=== PATIENT | female | born 1970 | race Two or more races ===

== ENCOUNTER 2019-04-25 18:58 | Inpatient (IN) | payer SELFPAY ==
[~2019-04-25] VITALS: Ht 149.9 cm; Wt 65.5 kg
--- NOTE | 2019-04-25 20:31 | NUR ---
PT BIB SELF FOR C/O LLQ ABD PAIN X2 DAYS. +N/V/D. PT DENIES ANY CHANGE IN DIET OR FOOD ALLERGIES. PT DENIES ANY PAIN WHILE URINATING OR HAVING A BM. PT IS A/O X4. PT RESPS ARE E/U. PT CAN AMBULATE WITH STEADY GAIT. AWAITING MSE
--- NOTE | 2019-04-25 21:03 | NUR ---
DR CRANE AT BEDSIDE
[2019-04-25 21:23] LABS: UA SPECIFIC GRAVITY 1.025 (1.005-1.035); microscopic required? YES; urine erythrocyte 3+ (NEGATIVE)
[2019-04-25 21:25] LABS: PLATELET COUNT 323 x10^3mcL (130-400)
[2019-04-25 21:28] LABS: RED CELL DISTRIBUTION WIDTH 19.9 % (11.5-14.5)
[2019-04-25 21:41] LABS: rbc morphology (normal/abnorm) ABNORMAL (NORMAL)
[2019-04-25 21:42] LABS: ovalocyte/elliptocyte 1+
--- NOTE | 2019-04-25 21:45 | NUR ---
PT TAKEN FOR CT
[2019-04-25 21:47] LABS: CALCIUM 9.1 mg/dL (8.5-10.1); CARBON DIOXIDE 22.9 mmol/L (21-32); CHLORIDE SERUM 104 mmol/L (98-107); CREATININE SERUM 0.9 mg/dL (0.6-1.0); GFR1 > 60 mL/min; GLUCOSE SERUM 126 mg/dL (74-106); POTASSIUM SERUM 3.4 mmol/L (3.5-5.1); SODIUM SERUM 139 mmol/L (136-145)
[2019-04-25 21:51] LABS: ALBUMIN 3.5 g/dL (3.4-5.0); ALKALINE PHOSPHATASE 70 U/L (46-116); ALT/SGPT 14 U/L (14-59); AST/SGOT 10 U/L (15-37); BILIRUBIN TOTAL 0.6 mg/dL (0.20-1.00); LIPASE 65 IU/L (73-393); TOTAL PROTEIN, SERUM 6.9 g/dL (6.4-8.2)
--- NOTE | 2019-04-25 23:43 | NUR ---
REPORT GIVEN TO CHIKIS GIL TO ASSUME CARE
[2019-04-26] VITALS (10 sets, daily range): BP systolic 96–126; BP diastolic 42–61; Ht 149.9 cm; Wt 65.5 kg
--- NOTE | 2019-04-26 00:20 | NUR ---
RECEIVED PT FROM ED VIA [facility], CAME IN DUE TO LEFT ABDOMINAL PAIN. PT IS AAOX4. C/O DIZZINESS. C/O MILD SOB ON MINIMAL EXERTION AND 4/10 MID CHEST PAIN ONLY WHEN TAKING A DEEP BREATH. O2 SAT=98% RA. SR ON THE MONITOR. PALE. PULSES ARE PALPABLE. PT IS ON HER MENSTRUAL PERIOD, USUALLY LASTS 5 DAYS. HER PERIOD STARTED ON 04/23/19. STATED THAT HER MENSTRUAL PERIOD IS HEAVY AND THIS IS HER 8TH PAD ALEADY. IV SITE ON THE LAC IS PATENT AND INTACT. SIDE RAILS UPX2. CALL LIGHT ON REACH. DAUGHTER AT BEDSIDE. ENDORSED TO PRIMARY NURSE CHIKIS FOR CONTINUITY OF CARE
[2019-04-26 00:30] LABS: MAGNESIUM 2.4 mg/dL (1.8-2.4); PHOSPHOROUS 3.1 mg/dL (2.5-4.9)
--- NOTE | 2019-04-26 01:40 | NUR ---
BLOOD TRANSFUSION INITATED ORDERED, VERIFIED WITH SECOND RNBETZY. PT PRE MEDICATED ORDERED. VS STABLE. PT EDUCATED ON SIDE EFFECTS OF TRANSFUSION REACTIONS, PT VERBALIZED UNDERSTANDING. CONSENT SIGNED AND PLACED IN CHART. FIRST UNIT PRBC TRANSFUSING VIA LAC 20G, INFUSING WELL. NO S/S OF INFILTRATION NOTED.
--- NOTE | 2019-04-26 01:55 | NUR ---
POST 15 MIN OF BLOOD TRANSFUSING, VS STABLE. NO SIGNS OF REACTION. BLOOD INFUISNG AT 100ML/HR. CALL BUTTON WITHIN REACH. SAFETY PRECAUTIONS IN PLACE. WILL CONTINUE TO MONITOR.
--- NOTE | 2019-04-26 03:00 | NUR ---
PT RESTING. NO SIGNS OF DISTRESS. BLOOD TRANSFUSING WELL. NO SIGNS OF INFILTRATION. NO SIGNS OF ADVERSE REACTION NOTED. CALL BUTTON WITHIN REACH. SAFETY PRECAUTIONS IN PLACE. WILL CONTINUE TO MONITOR.
--- NOTE | 2019-04-26 04:40 | NUR ---
FIRST UNIT OF BLOOD TRANSFUSION COMPLETED AT THIS TIME. BP 103/[address] ZALDIVAR TO HOLD LASIX. NO SIGNS OF ADVERSE REACTION NOTED. CALL BUTTON WITHIN REACH. SAFETY PRECAUTIONS IN PLACE. WILL CONTINUE TO MONITOR.
--- NOTE | 2019-04-26 05:40 | NUR ---
SECOND UNIT OF BLOOD INITIATED AT THIS TIME PER ORDER. VERIFIED BLOOD WITH SECOND RN, BETZY GIL. PT MADE AWARE OF POSSIBLE ADVERSE REACTIONS, VERBALIZED UNDERSTANDING. VS STABLE. CALL BUTTON WITHIN REACH. SAFETY PRECAUTIONS IN PLACE. WILL CONTINUE TO MONITOR.
--- NOTE | 2019-04-26 05:55 | NUR ---
POST 15 MIN OF BLOOD TANSFUSING, PT VS STABLE. NO SIGNS OF ADVERSE REACTIONS. TRANSFUSING AT 100 ML/HR. NO SIGNS OF DISTRESS. CALL BUTTON WITHIN REACH. SAFETY PRECAUTIONS IN PLACE. WILL CONTINUE TO MONITOR.
--- NOTE | 2019-04-26 06:19 | NUR ---
PT SLEPT ON AND OFF THROUGHOUT THE SHIFT. BREATHING EVEN AND UNLABORED ON RA. NO SOB NOTED. BLOOD TRANSFUSION CONTINUE TO INFUSE AT THIS TIME. NO ADVERSE REACTIONS. PT AMBULATORY WITH MINIMAL ASSIST. PER PT ON MENSTRAUL CYCLE, HEAVY FLOW. PT MEDICATED PER EMAR. ENCOURAGE PT TO USE BEDPAN PT GETS DIZZY WHEN STANDINING UP AT TIMES. DAUGHTER AT BEDSIDE. CALL BUTTON WITHIN REACH. SAFETY PRECAUTIONS IN PLACE. WILL CONITNUE TO MONITOR AND ENDORSE CARE TO DAY SHIFT RN.
[2019-04-26 06:30] LABS: BASOPHIL % 0.5 % (0-2); PLATELET COUNT 279 x10^3mcL (130-400)
[2019-04-26 07:02] LABS: CALCIUM 8.4 mg/dL (8.5-10.1); CARBON DIOXIDE 20.7 mmol/L (21-32); CHLORIDE SERUM 112 mmol/L (98-107); CREATININE SERUM 0.8 mg/dL (0.6-1.0); GFR1 > 60 mL/min; GLUCOSE SERUM 90 mg/dL (74-106); MAGNESIUM 2.3 mg/dL (1.8-2.4); PHOSPHOROUS 3.6 mg/dL (2.5-4.9); SODIUM SERUM 144 mmol/L (136-145)
--- NOTE | 2019-04-26 07:30 | NUR ---
PT IS AAOX4. PT DENIES H/A AND DIZZINESS. RESP EVEN AND UNLABORED. LUNG SOUNDS CTA. ON R/A. TELE [address] READ[address] NSR. ABDOMEN SOFT, NONTENDER, NONDISTENDED. BOWEL SOUNDS ACTIVE X 4 QUADS. PT DENIES N/V/D. SKIN CDI. NO EDEMA NOTED. PERIPHERAL PULSES MODERATELY PALPABLE. DENIES NUMBNESS AND TINGLING. IVF (BLOOD) RUNNING TO LAC. SITE WNL. NO S/S OF INFECTION OR INFILTRATION. WILL CONTINUE MONITORING PT'S MENSTRUAL FLOW. PT SOAKED THREW 8 PADS WITH SEROSANGUINOUS BLOOD DURING NOC SHIFT. PT DENIES PAIN AT THIS TIME. CALL LIGHT WITHIN REACH.
--- NOTE | 2019-04-26 07:35 | NUR ---
PT AWAKE DENIES ANY PAIN. NO SIGNS OF DISTRESS. BLOOD TRANSFUSION CONTINUE TO INFUSE AT 100 ML/HR, NO SIGNS OF INFILTRATION. ENDORSED CARE TO DAY SHIFT RN, ALL QUESTIONS ADDRESSED.
[2019-04-26 08:32] LABS: RED CELL DISTRIBUTION WIDTH 28.1 % (11.5-14.5)
--- NOTE | 2019-04-26 08:40 | NUR ---
LAB REPORTED PT'S HGB= 6.2 AND HCT=20. PAGED DR. BETANCUR AWAITING CALL BACK.
--- NOTE | 2019-04-26 08:45 | NUR ---
SECOND UNIT OF PRBC COMPLETED. PT DENIES FEVER, CHILLS, FLANK PAIN, ITCHING AND SOB. PT STATED, "I AM FEELING SO MUCH BETTER." PT AMBULATED TO BATHROOM AND BACK IN BED WITH NO C/O DIZZINESS OR WEAKNESS. VS: T 98.6F, HT 74, RR 20 B/P 111/52, 02 SAT AT 98% ON R/A. PT IN BACK IN BED. CALL LIGHT WITHIN REACH. BED IN LOWEST POSTION. DAUGHTER AT BEDSIDE.
--- NOTE | 2019-04-26 09:45 | NUR ---
REPORTED TO DR. BETANCUR THAT PT'S HGB 6.2, HCT 20. REPORTED THAT THE CBC WAS DRAWN WHILE THE SECOND UNIT OF PRBC WAS INFUSING. DR. BETANCUR STATED HE WILL ASSESS THE PT AND MOST LIKELY ORDER ANOTHER CBC. PT MADE AWARE.
--- NOTE | 2019-04-26 09:58 | NUR ---
PT IS RECEIVING VAGINAL U/S AT THIS TIME.
--- NOTE | 2019-04-26 10:10 | NUR ---
TYLENOL 650 MG PO GIVEN FOR CRAMPING ABDOMINAL PAIN 12/10. PT TURNED AND REPOSITIONED FOR COMFORT. CALL LIGHT WITHIN REACH. BED IN LOWEST POSTION.
--- NOTE | 2019-04-26 12:07 | NUR ---
PT IS SLEEPING BUT EASILY AROUSABLE TO VERBAL STIMULI. RESP EVEN AND UNLABORED. NO DISTRESS NOTED. CALL LIGHT WITHIN REACH.
[2019-04-26 13:34] LABS: burr cell (echinocyte) 1+; ovalocyte/elliptocyte 1+; rbc morphology (normal/abnorm) ABNORMAL (NORMAL); schistocyte (helmet cell) 1+
[2019-04-26 14:36] LABS: BASOPHIL % 0.4 % (0-2); PLATELET COUNT 265 x10^3mcL (130-400)
[2019-04-26 14:47] LABS: RED CELL DISTRIBUTION WIDTH 30.4 % (11.5-14.5)
--- NOTE | 2019-04-26 14:47 | NUR ---
PT IS VISITING WITH DAUGHTER. PT STATED SHE HAS ONLY HAD ON PAD CX SINCE THIS MORNING. RESP EVEN AND UNLABORED. NO DISTRESS NOTED. DENIES PAIN AT THIS TIME. CALL LIGHT WITHIN REACH.
[2019-04-26 15:04] LABS: ovalocyte/elliptocyte 1+; rbc morphology (normal/abnorm) ABNORMAL (NORMAL); schistocyte (helmet cell) 1+
--- NOTE | 2019-04-26 18:13 | NUR ---
TYLENOL 650MG PO GIVEN FOR MILD H/A 11/09. EXTRA FLUIDS GIVEN AND ENCOURAGED. IVF REPLENISHED. RESP EVEN AND UNLABORED. NO DISTRESS NOTED. PT STATES SHE HAD 2 PAD CHANGES WITH SEROSANGUINOUS DISCHARGE AND NO CLOTS THIS SHIFT. CALL LIGHT WITHIN REACH.
--- NOTE | 2019-04-26 18:53 | NUR ---
PT IS SITTING UP IN AT BESIDE VISITING WITH DAUGHTER. RESP EVEN AND UNLABORED. NO DISTRESS NOTED. DENIES H/A, PAIN AND DISCOMFORT AT THIS TIME. PT USED 2 PERIPADS THIS SHIFT WITH LIGHT SEROSANGUINOUS DISCHARGE. CALL LIGHT WITHIN REACH. BED IN LOWEST POSITION. WILL ENDORSE ALL CARE TO NOC RN.
--- NOTE | 2019-04-26 19:32 | NUR ---
RECEIVED PT FROM DAY SHIFT RN. PT AAOX4. DENIES YOST/DIZZINESS. BREATHING EVEN AND UNLABORED ON RA WITH NO SOB NOTED. IV LAC PATENT, INFUSING WELL. TELE #5. DENIES CHEST PAIN/PRESSURE. ABD SOFT/ROUND ACTIVE BOWEL SOUNDS. DENIES ABD PAIN/N/V. PER PT SHE CHANGED HER FEMENINE PADS X2 DURING THE DAY. PT AMBULATORY WITH BRP. NO SIGNS OF DISTRESS. CALL BUTTON WITHIN REACH. SAFETY PRECAUTIONS IN PLACE. DAUGHTER AT BEDSIDE. WILL CONTINUE TO MONITOR.
--- NOTE | 2019-04-26 20:10 | NUR ---
DR MARTINI AT BEDSIDE SPEAKING TO PATIENT.
--- NOTE | 2019-04-26 21:25 | NUR ---
PT REPORTED ABD PAIN 5/10. MEDICATED PER EMAR. CALL BUTTON WITHIN REACH. SAFETY PRECAUTIONS IN PLACE. WILL CONTINUE TO MONITOR.
--- NOTE | 2019-04-27 01:10 | NUR ---
PT RESTING. BREATHING EVEN AND UNLABORED WITH NO SIGNS OF DISTRESS. CALL BUTTON WITHIN REACH. SAFETY PRECAUTIONS IN PLACE. WILL CONITNUE TO MONITOR.
--- NOTE | 2019-04-27 04:01 | NUR ---
ROUNDS MADE. PT RESTING. BREATHING EVEN AND UNLABORED WITH NO SIGNS OF DISTRESS. CALL BUTTON WITHIN REACH. SAFETY PRECAUTIONS IN PLACE. WILL CONTINUE TO MONITOR.
[2019-04-27 05:46] VITALS: BP 125/65
--- NOTE | 2019-04-27 06:25 | NUR ---
PT SLEPT MOST OF THE NIGHT WITH NO SIGNS OF DISTRESS. BREATHING EVEN AND UNLABORED ON RA WITH NO RESP DISTRESS. IV PATENT, INFUSING WELL. NO SIGNS OF INFILTRATION NOTED. PT AMBULATORY WITH BRP. PER PT CHANGED FEMENINE PADS X1 TONIGHT VERY MINIMAL BLEEDING. PT REPORTED ABD PAIN X1, MEDICATED PER EMAR. CALL BUTTON WITHIN REACH. SAFETY PRECAUTIONS IN PLACE. WILL CONTINUE TO MONITOR AND ENDORSE CARE TO DAY SHIFT RN.
[2019-04-27 07:08] LABS: BASOPHIL % 0.3 % (0-2); PLATELET COUNT 265 x10^3mcL (130-400)
[2019-04-27 07:12] LABS: RED CELL DISTRIBUTION WIDTH 30.6 % (11.5-14.5)
[2019-04-27 07:31] LABS: CALCIUM 8.7 mg/dL (8.5-10.1); CARBON DIOXIDE 22.9 mmol/L (21-32); CHLORIDE SERUM 107 mmol/L (98-107); CREATININE SERUM 0.7 mg/dL (0.6-1.0); GFR1 > 60 mL/min; GLUCOSE SERUM 76 mg/dL (74-106); MAGNESIUM 2.3 mg/dL (1.8-2.4); POTASSIUM SERUM 3.5 mmol/L (3.5-5.1); SODIUM SERUM 141 mmol/L (136-145)
--- NOTE | 2019-04-27 07:37 | NUR ---
PT IN NO SIGNS OF DISTRESS. ENDORSED CARE TO DAY SHIFT RN, ALL QUESTIONS ADDRESSED.
--- NOTE | 2019-04-27 08:00 | NUR ---
SHIFT ASSESSMENT DONE. PATIENT A/A/OX4. TELE#5; SR; HR 78. DENIED RESP DISTRESS ON RA. AMBULATED ON STEADY GAIT. IVF OF NS 100CC/HR; IV SITE TO LAC INTACT. DENIED ABD PAIN. SPOT VAG BLEEDING TO PAD. NO MAXI PAD CHANGED TODAY YET. TOLERATED REGULAR DIET BREAKFAST. CALL LIGHT IN REACH.
[2019-04-27 09:00] LABS: ovalocyte/elliptocyte 1+; rbc morphology (normal/abnorm) ABNORMAL (NORMAL); schistocyte (helmet cell) 1+; tear drop cell (dacryocyte) 1+
--- NOTE | 2019-04-27 09:00 | NUR ---
C/O HEADACHE 5/10; TEMP = 98.4; TYLENOL 650MG PO GIVEN. CONTINUE MONITOR.
[2019-04-27 09:25] VITALS: BP 114/57
--- NOTE | 2019-04-27 10:39 | NUR ---
STATED HEADACHE RELIEVED. AMBULATED IN ROOM.
[2019-04-27] MEDS ORDERED: PROV5 PO (11:15)
[2019-04-27 11:19] VITALS: BP 114/57
--- NOTE | 2019-04-27 14:00 | NUR ---
D/C TO HOME PER ORDER. INSTRUCTION GIVEN TO PATIENT AND HER DAUGHTER. IV D/C'D. CONDITION STABLE.
--- NOTE | 2019-04-27 14:50 | NUR ---
discount pharmacy card and list to low cost medical clinics given to patient by Neil Sanchez.
== END 2019-04-27 14:01 | disposition home or self-care (01) | DRG 760 ==
LOC: ED 18:58 → MU 23:12 → DU 04-26 00:14
PROVIDERS: Emergency Medicine; ADMIT General Practice
PROC: 30233N1 Transfusion of Nonautologous Red Blood Cells into Peripheral Vein, Percutaneous Approach (ICD-10-PCS; principal; 2019-04-26)
DX: D25.9 Leiomyoma of uterus, unspecified (principal); D62 Acute posthemorrhagic anemia; E87.6 Hypokalemia; R00.0 Tachycardia, unspecified; N92.0 Excessive and frequent menstruation with regular cycle; D72.829 Elevated white blood cell count, unspecified; Z83.3 Family history of diabetes mellitus; Z82.49 Family history of ischemic heart disease and other diseases of the circulatory system
CPT/HCPCS: 83880; G0378; J1885; J7030; J7050; P9016; Q0092; Q0163